=== PATIENT | male | born 1965 | race Caucasian/White ===

== ENCOUNTER 2016-08-22 21:57 | Emergency (ER) | payer SELFPAY ==
[~2016-08-22] VITALS: Ht 165.1 cm; Wt 82.0 kg
[2016-08-22 23:53] VITALS: BP 147/78
[2016-08-23] MEDS ORDERED: BACITRACIN ZINC OINT UDPKT TOP ONE (01:15)
[2016-08-23] MEDS ORDERED: ACETAMINOPHEN 500MG TABLET PO ONE (01:30)
== END 2016-08-23 01:46 | disposition home or self-care (01) ==
LOC: ER 22:00
DX: S80.811A Abrasion, right lower leg, initial encounter (principal); X58.XXXA Exposure to other specified factors, initial encounter; Y93.89 Activity, other specified; Y92.89 Other specified places as the place of occurrence of the external cause; Y99.8 Other external cause status; F17.200 Nicotine dependence, unspecified, uncomplicated; F12.10 Cannabis abuse, uncomplicated; Z88.8 Allergy status to other drugs, medicaments and biological substances
CPT/HCPCS: 99283